=== PATIENT | female | born 1995 | race Caucasian/White ===

== ENCOUNTER → 2016-12-30 | Outpatient (REF) ==
[~2016-12-30] MED LIST: AMOXICILLIN875 MG PO; FLEXERIL 1010 MG/TAB PO
== END ==
LOC: WSOH 11:27
DX: Z76.89 Persons encountering health services in other specified circumstances (principal)

== ENCOUNTER 2017-03-01 22:19 | Emergency (ER) | payer BC ==
[~2017-03-01] VITALS: Ht 175.3 cm; Wt 70.5 kg
[2017-03-01 22:21] VITALS: BP 145/82; TEMP 99
[2017-03-01] MEDS ORDERED: AMOXICILLIN875 MG PO (22:24)
[2017-03-02] MEDS ORDERED: FLEXERIL 1010 MG/TAB PO (01:44)
[2017-03-02 01:59] VITALS: PULSE 62
== END 2017-03-02 02:02 | disposition home or self-care (01) ==
LOC: COL.ER 22:19
DX: M94.0 Chondrocostal junction syndrome [Tietze] (principal)
CPT/HCPCS: J1885